=== PATIENT | female | born 1965 | race Caucasian/White ===

== ENCOUNTER 2016-11-30 16:17 | Emergency (ER) | payer MEDICAID ==
[~2016-11-30] VITALS: Ht 152.4 cm; Wt 58.0 kg
[2016-11-30 17:02] LABS: GLUCOSE,POINT OF CARE 196 MG/DL (70-110)
[2016-11-30] MEDS ORDERED: INSLAN SQ (17:02)
[2016-11-30] MEDS ORDERED: ATOR10TA84 PO (17:02)
[2016-11-30] MEDS ORDERED: BLOOD PRESSURE MEDS PO (17:02)
[2016-11-30] MEDS ORDERED: INSNOV SQ (17:02)
[2016-11-30 17:42] LABS: BASOPHILS % (AUTO) 0.5 % (0.0-2.0); EOSINOPHILS % (AUTO) 6.5 % (1.0-6.0); HEMATOCRIT 22.8 % (36-46); HEMOGLOBIN 7.6 g/dL (12.0-16.0); LYMPHOCYTES # (AUTO) 2.4 K/uL (1.0-4.8); LYMPHOCYTES % (AUTO) 23.9 % (22.0-44.0); MEAN CORPUSCULAR HEMOGLOBIN 29.3 pg (26.0-34.0); MEAN CORPUSCULAR HGB CONC 33.3 G/dL (31.0-37.0); MEAN CORPUSCULAR VOLUME 88 fL (80-100); MONOCYTES # (AUTO) 0.4 K/uL (0.1-1.0); MONOCYTES % (AUTO) 4.4 % (2.0-9.0); NEUTROPHILS # (AUTO) 6.6 K/uL (1.8-7.7); NEUTROPHILS % (AUTO) 64.7 % (40.0-70.0); PLATELET COUNT (AUTO) 244 K/uL (150-450); RED CELL DISTRIBUTION WIDTH 16.2 % (11.5-14.5); WHITE BLOOD COUNT (AUTO) 10.2 K/uL (4.5-11.0)
[2016-11-30 17:48] LABS: CALCIUM, TOTAL 8.6 mg/dL (8.8-10.5); CREATININE 1.86 mg/dL (0.60-1.30); POTASSIUM 5.1 mmol/L (3.5-5.1)
[2016-11-30 17:55] LABS: BILIRUBIN,TOTAL 0.4 mg/dL (0.1-1.0); TOTAL PROTEIN, SERUM 8.2 g/dL (6.4-8.2)
[2016-11-30] MEDS ORDERED: LISI-660 PO (18:34)
[2016-11-30] MEDS ORDERED: ESOM20CA31 PO (18:34)
[2016-11-30] MEDS ORDERED: FERR325T40 PO (18:34)
[2016-11-30] MEDS ORDERED: DOCU250C21 PO (18:34)
[2016-11-30] MEDS ORDERED: AMLO-512 PO (18:34)
[2016-11-30 19:55] VITALS: BP 124/68
== END 2016-11-30 22:16 | disposition home or self-care (01) ==
LOC: EMS 16:19
DX: D50.9 Iron deficiency anemia, unspecified (principal); N28.9 Disorder of kidney and ureter, unspecified; E11.9 Type 2 diabetes mellitus without complications; E78.00 Pure hypercholesterolemia, unspecified; I10 Essential (primary) hypertension; Z79.4 Long term (current) use of insulin
CPT/HCPCS: 82962; 83540; 83550; 85045; 86850; 86900; 86901; 93005; 99285

== ENCOUNTER 2017-03-28 17:37 | Emergency (ER) | payer MEDICAID ==
[~2017-03-28] VITALS: Ht 152.4 cm; Wt 66.0 kg
[~2017-03-28 17:37] MED LIST: AMLO-512 PO; ATOR10TA84 PO; BLOOD PRESSURE MEDS PO; DOCU250C21 PO; ESOM20CA31 PO; FERR325T40 PO; INSLAN SQ; INSNOV SQ; LISI-660 PO
[2017-03-28 17:52] LABS: GLUCOSE,POINT OF CARE 240 MG/DL (70-110)
[2017-03-28] MEDS ORDERED: ACET1TAB12 PO (17:52)
[2017-03-28] MEDS ORDERED: VALS160T2 PO (17:52)
[2017-03-28] MEDS ORDERED: CEPH500T PO (17:52)
[2017-03-28] MEDS ORDERED: CIPR-140 PO (17:52)
[2017-03-28] MEDS ORDERED: METO25 PO (17:52)
[2017-03-28] MEDS ORDERED: GABA100C PO (17:52)
[2017-03-28] MEDS ORDERED: NIFE10 PO (17:52)
[2017-03-28] MEDS ORDERED: METR500T4 PO (17:52)
[2017-03-28 19:04] LABS: APPEARANCE,URINE CLEAR (CLEAR); GLUCOSE, URINE (UA) 100 mg/dL (NEGATIVE); KETONES,URINE NEGATIVE (NEGATIVE); LEUKOCYTE ESTERASE ,URINE NEGATIVE (NEGATIVE); OCCULT BLOOD,URINE TRACE (NEGATIVE); PROTEIN,URINE SEE CONFIRM (NEGATIVE)
[2017-03-28 19:05] LABS: ADD UA MICROSCOPIC YES
[2017-03-28 19:06] LABS: BASOPHILS # (AUTO) 0.06 K/uL (0.00-0.20); BASOPHILS % (AUTO) 0.9 % (0.0-2.0); EOSINOPHILS # (AUTO) 0.63 K/uL (0.00-0.70); EOSINOPHILS % (AUTO) 8.49 % (1.0-6.0); HEMATOCRIT 26.8 % (36-46); HEMOGLOBIN 9.1 g/dL (12.0-16.0); LYMPHOCYTES # (AUTO) 1.6 K/uL (1.0-4.8); LYMPHOCYTES % (AUTO) 20.8 % (22.0-44.0); MEAN CORPUSCULAR HGB CONC 33.8 G/dL (31.0-37.0); MEAN CORPUSCULAR VOLUME 89 fL (80-100); MONOCYTES # (AUTO) 0.5 K/uL (0.1-1.0); MONOCYTES % (AUTO) 6.9 % (2.0-9.0); NEUTROPHILS # (AUTO) 4.7 K/uL (1.8-7.7); PLATELET COUNT (AUTO) 320 K/uL (150-450); RED BLOOD CELL COUNT(AUTO) 3.03 MIL/uL (4.00-5.20); RED CELL DISTRIBUTION WIDTH 15.8 % (11.5-14.5); WHITE BLOOD COUNT (AUTO) 7.5 K/uL (4.5-11.0)
[2017-03-28 19:10] LABS: PROTHROMBIN TIME 10.7 SEC (9.4-11.6)
[2017-03-28 19:14] LABS: SULFOSALICYLIC ACID,URINE 3+ (Negative)
[2017-03-28 19:15] LABS: CALCIUM, TOTAL 8.6 mg/dL (8.8-10.5); CREATININE 3.64 mg/dL (0.60-1.30); POTASSIUM 5.2 mmol/L (3.5-5.1)
[2017-03-28 19:16] LABS: SQUAMOUS EPITHELIAL CELL,UR Few /LPF (None Seen)
[2017-03-28 19:17] LABS: TRANSITIONAL EPI CELLS,URINE Few /LPF (None Seen)
[2017-03-28 19:20] LABS: ALBUMIN 2.8 g/dL (3.4-5.0); BILIRUBIN,TOTAL 0.5 mg/dL (0.1-1.0)
[2017-03-28] MEDS ORDERED: NIFE30TA5 PO (19:24)
[2017-03-28] MEDS ORDERED: SODIUM POLYSTYRENE SULFONATE 15 GM/60 ML SUSPENSION BOTTLE PO ONE (19:30)
[2017-03-28 19:54] VITALS: BP 131/81
== END 2017-03-28 19:57 | disposition home or self-care (01) ==
LOC: EMS 17:42
DX: G89.18 Other acute postprocedural pain (principal); E87.5 Hyperkalemia; E11.22 Type 2 diabetes mellitus with diabetic chronic kidney disease; N18.9 Chronic kidney disease, unspecified; I10 Essential (primary) hypertension; E78.00 Pure hypercholesterolemia, unspecified; Z79.4 Long term (current) use of insulin
CPT/HCPCS: 82962; 93005; 99285